=== PATIENT | male | born 1960 | race Caucasian/White ===

== ENCOUNTER 2025-04-10 08:21 | Emergency (ER) | payer OTHER ==
[~2025-04-10] VITALS: Ht 180.3 cm; Wt 108.9 kg
[2025-04-10] MEDS ORDERED: LORA10TA7 PO (09:22)
[2025-04-10] MEDS ORDERED: CEPH500B PO (09:22)
--- NOTE | 2025-04-10 09:22 | ERN ---
General Chief Complaint: Insect Bite Stated Complaint: BUG BITE LT HAND Time Seen by MD: 08:27 Source: patient History of Present Illness Initial Comments Patient is a 65-year-old male coming in complaining of left hand rash. Patient states that the lesion began three days ago. He came in today due to the discomfort those he was presenting with a it does not know what caused the lesion. Allergies: Coded Allergies: No Known Drug Allergies (Unverified Allergy, Unknown, 04/10/25) Past Medical History Past Medical History: Hypertension Past Surgical History: Cholecystectomy Surgical History Other: RT FOOT, BACK, JANESSA INGUINAL HERNIA, RT SHOULER ROS Dictation CONSTITUTIONAL: No chills, no fever, no weakness, no diaphoresis, no malaise. HEAD/FACE: No signs of trauma. EENT: No eye pain, no blurred vision, no tearing, no double vision, no ear pain, no ear discharge, no nose pain, no nasal congestion, no throat pain, no throat swelling, no mouth pain. RESPIRATORY: No cough, no orthopnea, no SOB, no stridor, no wheezing. CARDIOVASCULAR: No chest pain, no edema, no palpitations, no syncope. GASTROINTESTINAL/ABDOMINAL: No abdominal pain, no constipation, no diarrhea, no nausea, no vomiting. GENITOURINARY: No abnormal discharge, no dysuria, no frequent urination, no hematuria. No complaints of pain in the genitals. MUSCULOSKELETAL: No back pain, no gout, no joint pain, no joint swelling, no muscle pain, no muscle stiffness, no neck pain. INTEGUMENTARY: No change in color, no change in hair/nails, no dryness, no lesion, no lumps, rash. NEUROLOGICAL/PSYCH: No anxiety, not depressed, no emotional problem, no headache, no numbness, no pre-existing deficit, no history of seizures, no tremors, no weakness. HEMATOLOGIC/LYMPHATIC: Not anemic, no history of blood clots, no apparent bleeding, no bruising, glands not swollen. All Systems Negative, Except as Noted. Physical Exam Physical Exam Dictation VITAL SIGNS: Reviewed. GENERAL APPEARANCE: Alert, oriented x3, no acute distress, obese. HEAD AND FACE: Non-traumatic. EYES: PERRL, pink conjunctivas, eyelid no trauma, anterior chamber clear. EARS: Pinnas intact and no signs of trauma or erythema. Ear canals clear and no discharge. TMs no erythema. NOSE: No discharge, no bleeding. OROPHARYNX: Mouth normal, teeth no caries, tongue pink. Pharynx clear, no erythema. Tonsils no exudates, no abscesses noted. Mucous membrane moist. NECK: Supple, non-tender, no thyromegaly, no masses, no JVD, no bruits. BREAST: Deferred. CHEST: No tenderness, no crepitus, no paradoxical movement, no retractions. LUNGS: Clear, well-ventilated, symmetric, no rales, no wheezing, no rhonchi, no stridor, good breath sounds bilaterally. HEART: Regular rate, regular rhythm, no murmur, no gallops. VASCULAR: No peripheral edema. ABDOMEN: Soft, positive bowel sounds, nondistended, no guarding, nontender, no rebound, no masses no hepatomegaly, no splenomegaly, no Hernandez's sign, no hernias. RECTAL: Deferred. GENITAL: Deferred. NEUROLOGICAL: Normal speech, gross motor function intact, gross sensory function intact. MUSCULOSKELETAL: Neck nontender, full range of motion, back nontender, full range of motion. EXTREMITIES: Nontender, full range of motion. SKIN: Color pink, dry, no turgor, erythematous rash on the dorsal side of his wrist, no lacerations, no abrasions, no contusions. LYMPHATICS: Deferred. Results Laboratory and Microbiology Labs Reviewed?: Yes MDM MDM: Differential diagnosis: Rash, insect bite, cellulitis, Rationale: Tests considered and ordered secondary to shared decision making include: Previous outside records reviewed: Old ER visits. Risk of complication and/or morbidity or mortality of patient management: None Medications-Per medication reconciliation Need for hospitalization: Patient does not meet criteria for hospitalization. Patient is a 65-year-old gentleman coming in complaining of left hand possible insect bite. On physical exam there is and erythematous rash on the dorsum aspect of his hand. Patient received antibiotics IM as well as tetanus and one dose of steroids. Patient will be discharged in stable condition with a diagnosis of left hand cellulitis. ED Course Orders Procedure Category Date Status Time Ceftriaxone 1g Vial PHA 04/10/25 Complete (Rocephine 1g Inj) 09:00 Dexamethasone 4mg/Ml PHA 04/10/25 Complete 1ml Vial (Dexametha 09:00 Tetanus,Diphtheria PHA 04/10/25 Complete Tox [Adult] (Diphther 09:00 Current Medications Medications (Trade) Dose Ordered Sig/Jung Route PRN Reason Start Time Stop Time Status Last Admin Dose Admin Ceftriaxone Sodium (ROCEphine 1G INJ) 1 gm ONCE ONCE IM 04/10/25 09:00 04/10/25 09:01 DC Dexamethasone Sodium Phosphate (dexaMETHasone 4MG/ML 1ML VIAL) 4 mg ONCE ONCE IM 04/10/25 09:00 04/10/25 09:01 DC Tetanus/ Diphtheria Toxoids Adsorbed (DiphthERIA-teTANUS TOXOID [ADULT]/ DECAVAC) 0.5 ml ONCE ONCE IM 04/10/25 09:00 04/10/25 09:04 DC Vital Signs Date Time Temp Pulse Resp B/P (MAP) Pulse Ox O2 Delivery O2 Flow Rate FiO2 04/10/25 08:25 97.9 66 16 143/71 99 Room Air DX & DISP Disposition: Discharge Departure Impression: Primary Impression: Cellulitis of left hand Additional Impression: Insect bite Condition: Stable Scripts Loratadine (Loratadine) 10 Mg Tablet 1 TAB PO DAILY for allergy symptoms for 30 Days, #30 TAB 0 Refills Prov: NICOLE LEDESMA MD 04/10/25 Cephalexin Monohydrate (Keflex) 500 Mg Cap 1 CAP PO TID for 10 Days, #30 CAP 0 Refills Prov: NICOLE LEDESMA MD 04/10/25 Additional Instructions: FOLLOW-UP WITH PRIMARY CARE PROVIDER IN 1 TO 2 DAYS. TAKE MEDICATIONS DIRECTED HERE IN THE EMERGENCY ROOM. OKAY TO CONTINUE HOME MEDICATIONS UNLESS OTHERWISE DISCUSSED DURING YOUR VISIT IN THE EMERGENCY ROOM TODAY. RETURN TO YOUR NEAREST EMERGENCY ROOM IF SYMPTOMS WORSEN OR IF THERE IS NO IMPROVEMENT. CALL 911 IF YOU NEED IMMEDIATE ASSISTANCE. TAKE TYLENOL [id number] NEEDED AND IF NO CONTRAINDICATIONS ARE PRESENT. INCREASE ORAL HYDRATION. A WOUND CULTURE OR URINE CULTURE WAS ORDERED HERE IN THE EMERGENCY ROOM DEPARTMENT PLEASE FOLLOW-UP WITH PRIMARY CARE PROVIDER AND ADVISE THEM TO GET REPORTS FROM OUR FACILITY. IF YOU HAD ANY SHARON WRAP/SPLINTS THAT WERE APPLIED HERE, PLEASE DO NOT REMOVE THEM UNTIL YOU SEE YOUR PRIMARY CARE OR SPECIALTY. Referrals: Referrals: SELF,REFERRAL (PCP) BAR JARA MD Time of Disposition: 09:21 NICOLE LEDESMA MD Apr 10, 2025 09:22
[2025-04-10 09:45] VITALS: BP 144/70; PULSE 69; RESP 14; TEMP 97.9; O2SAT 99
== END 2025-04-10 09:52 | disposition home or self-care (01) ==
LOC: EDH 08:21
DX: S60.562A Insect bite (nonvenomous) of left hand, initial encounter (principal); L03.114 Cellulitis of left upper limb; M79.642 Pain in left hand; I10 Essential (primary) hypertension; Z90.49 Acquired absence of other specified parts of digestive tract; W57.XXXA Bitten or stung by nonvenomous insect and other nonvenomous arthropods, initial encounter
CPT/HCPCS: 99284; 36415; 90714; 96372 ×2; 90471; J1100; J0696

== ENCOUNTER 2025-04-13 11:16 | Emergency (ER) | payer OTHER ==
[~2025-04-13] VITALS: Ht 180.3 cm; Wt 108.0 kg
[~2025-04-13 11:16] MED LIST: CEPH500B PO; LORA10TA7 PO
--- NOTE | 2025-04-13 11:24 | ERN ---
ED Note History of Present Illness Stated Complaint: BUG BITE Chief Complaint: Insect Bite Time Seen by MD: 11:16 Dictation: PATIENT IS A 65-YEAR-OLD MALE HERE WITH COMPLAINTS OF A LEFT HAND SPIDER BITE/INSPECT BITE/CELLULITIS THAT HE HAS HAD FOR SEVERAL DAYS. HE DENIES ANY FEVER CHILLS NAUSEA VOMITING. HE WAS HERE ON April OF THIS YEAR AND TREATED WITH CEPHALEXIN AND A TETANUS UPDATE. STATES HE SAW HIS PRIMARY CARE DOCTOR TODAY WHO ADVISED HIM THAT THE CELLULITIS AND INFECTION WAS GETTING WORSE AND ADVISED HIM TO COME TO THE EMERGENCY ROOM FOR FURTHER EVALUATION AND TREATMENT. ADDITIONALLY HE WAS REFERRED TO DR. LOVE IF HE IS ADMITTED TO THE HOSPITAL FOR SEPSIS. Allergies: Coded Allergies: No Known Drug Allergies (Unverified Allergy, Unknown, 04/10/25) Home Meds Active Scripts Loratadine (Loratadine) 10 Mg Tablet, 1 TAB PO DAILY for allergy symptoms for 30 Days, #30 TAB 0 Refills Prov:NICOLE LEDESMA MD 04/10/25 Cephalexin Monohydrate (Keflex) 500 Mg Cap, 1 CAP PO TID for 10 Days, #30 CAP 0 Refills Prov:NICOLE LEDESMA MD 04/10/25 Past Medical History Past Medical History: High Cholesterol, Hypertension Surgical History: Cholecystectomy Surgical History Other: BACJ, HERNIA SX, SHOULDER SX RN Note Reviewed/Agreed w/PFSH: Yes Review of System Dictation CONSTITUTIONAL: NEGATIVE EXCEPT FOR HPI HEAD/FACE: NEGATIVE EXCEPT FOR HPI EENT: NEGATIVE EXCEPT FOR HPI RESPIRATORY: NEGATIVE EXCEPT FOR HPI GASTROINTESTINAL/ABDOMINAL: NEGATIVE EXCEPT FOR HPI GENITOURINARY: NEGATIVE EXCEPT FOR HPI MUSCULOSKELETAL: NEGATIVE EXCEPT FOR HPI INTEGUMENTARY: NEGATIVE EXCEPT FOR HPI ERYTHEMATOUS LESIONS WITH SWELLING TO DORSUM LEFT HAND NEUROLOGICAL/PSYCH: NEGATIVE EXCEPT FOR HPI HEMATOLOGIC/LYMPHATIC: NEGATIVE EXCEPT FOR HPI ALL SYSTEMS NEGATIVE, EXCEPT NOTED ABOVE. 13 POINT REVIEW OF SYSTEMS ASSESSED AND ALL NEGATIVE EXCEPT FOR ABOVE. Initial Vital Sign VS Vital Signs Date Time Temp Pulse Resp B/P (MAP) Pulse Ox O2 Delivery O2 Flow Rate FiO2 04/13/25 11:16 98.6 66 18 131/67 95 Room Air 0 04/13/25 11:51 21 Physical Exam Dictation VITAL SIGNS REVIEWED GENERAL APPEARANCE: ALERT, ORIENTED X 3, NO ACUTE DISTRESS, WELL DEVELOPED, NOUR ISHED. HEAD AND FACE: NON-TRAUMATIC. EYES: PERRL, PINK CONJUNCTIVAS, EYELID NO TRAUMA, ANTERIOR CHAMBER WITH ARCUS SENILIS. EARS: PINNAS INTACT AND NO SIGNS OF TRAUMA OR ERYTHEMA EAR CANALS CLEAR AND NO DISCHARGE TM NO ERYTHEMA NOSE: NO DISCHARGE, NO BLEEDING. OROPHARYNX: MOUTH NORMAL, TONGUE PINK, PHARYNX CLEAR,NO ERYTHEMA, TONSILS NO EXUDATES, NO ABSCESSES NOTED, MUCOUS MEM BRANE MOIST NECK: SUPPLE, NON-TENDER, NO THYROMEGALY, NO MASSES, NO JVD, NO BRUITS BREAST:DEFERRED CHEST:NO TENDERNESS, NO CREPITUS, NO PARADOXICAL MOVEMENT, NO RETRACTIONS LUNGS:CLEAR, WELL-VENTILATED, SYMMETRIC, NO RALES, NO WHEEZING, NO RHONCHI, NO STRIDOR, GOOD BREATH SOUNDS BILATERALLY HEART: REGULAR RATE, REGULAR RHYTHM, NO MURMUR, NO GALLOPS VASCULAR: NO PERIPHERAL EDEMA, ABDOMEN: SOFT, POSITIVE BOWEL SOUNDS, NONDISTENDED, NO GUARDING, NONTENDER, NO REBOUND, NO MASSES NO HEPATOMEGALY, NO SPLENOMEGALY, NO GAN'S SIGN, NO HERNIAS. RECTAL: DEFERRED GENITAL: DEFERRED NEUROLOGICAL: NORMAL SPEECH, MOTOR FUNCTION INTACT, SENSORY FUNCTION INTACT MUSCULOSKELETAL: NECK NONTENDER, FULL RANGE OF MOTION, BACK NONTENDER, FULL RANGE OF MOTION, EXTREMITIES: NONTENDER, FULL RANGE OF MOTION SKIN: COLOR PINK, SWOLLEN TENDER ERYTHEMATOUS LESION TO DORSUM LEFT HAND APPROXI MATE 3 X 4 CM. INDURATED. LYMPHATIC: DEFERRED Results (Laboratory/Radiology) Laboratory/Radiology Laboratory Tests Test 04/13/25 11:48 White Blood Count 12.3 K/uL (4.8-10.8) H Red Blood Count 4.78 MIL/uL (4.50-6.20) Hemoglobin 16.0 g/dL (14.0-18.0) Hematocrit 47.8 % (42-54) Mean Corpuscular Volume 100.0 fL (79-99) H Mean Corpuscular Hemoglobin 33.5 pg (27.0-33.0) H Mean Corpuscular Hemoglobin Concent 33.5 g/dL (32.0-36.0) Red Cell Distribution Width 12.0 % (11.0-15.5) Platelet Count 268 K/uL (130-400) Mean Platelet Volume 10.8 fL (7.5-10.5) H Immature Granulocyte % (Auto) 0.6 % (0-1) Neutrophils (%) (Auto) 56.8 % (40.0-77.0) Lymphocytes (%) (Auto) 29.9 % (21.0-51.0) Monocytes (%) (Auto) 9.4 % (3.0-13.0) Eosinophils (%) (Auto) 2.6 % (0.0-8.0) Basophils (%) (Auto) 0.7 % (0.0-5.0) Neutrophils # (Auto) 7.0 K/uL (1.8-7.7) Lymphocytes # (Auto) 3.7 K/uL (1.0-4.8) Monocytes # (Auto) 1.2 K/uL (0.1-1.0) H Eosinophils # (Auto) 0.32 K/uL (0.00-0.70) Basophils # (Auto) 0.09 K/uL (0.00-0.20) Absolute Immature Granulocyte (auto 0.07 K/uL (0-1) Nucleated Red Blood Cells 0.0 % (0.0-0.19) Sodium Level 140 mmol/L (136-145) Potassium Level 3.9 mmol/L (3.5-5.1) Chloride Level 104 mmol/L (101-111) Carbon Dioxide Level 30 mmol/L (21-32) Blood Urea Nitrogen 17 mg/dL (7-18) Creatinine 0.9 mg/dL (0.5-1.3) Glomerular Filtration Rate Calc 95 mL/min (>90) Random Glucose 103 mg/dL (70-105) Lactic Acid Level 1.0 mmol/L (0.8-2.5) Total Calcium 8.9 mg/dL (8.5-10.1) LEFT HAND ULTRASOUND DEMONSTRATES COMPLEX STRUCTURE 4.1 X 1.5 X 3.1 CM Labs Reviewed?: Yes ED Course ED Course Orders Procedure Category Date Status Time Blood Cult DEBBIE 04/13/25 In Process 11:20 Lactic Acid LAB 04/13/25 Complete 11:20 Cbc With Differential LAB 04/13/25 Complete 11:20 Basic Metabolic Panel LAB 04/13/25 Complete 11:20 Clindamycin Ivpb PHA 04/13/25 Complete 600mg/50ml (Cleocin 11:20 Ketorolac PHA 04/13/25 Complete Tromethamine 15mg/Ml 11:30 Us Soft Tissue Upper US 7/9/25 Resulted Extremity 12:13 Lidocaine Hcl 1% 20ml PHA 04/13/25 In Process Vial (Lidocaine Hc 14:30 Aerobic Culture DEBBIE 04/13/25 Logged 14:03 Current Medications Medications (Trade) Dose Ordered Sig/Jung Route PRN Reason Start Time Stop Time Status Last Admin Dose Admin Clindamycin HCl/ Dextrose 50 ml @ 100 mls/hr ONCE STAT IV 04/13/25 11:20 04/13/25 11:49 DC 04/13/25 12:01 Ketorolac Tromethamine (toRADol) 15 mg ONCE ONCE IV 04/13/25 11:30 04/13/25 11:31 DC 04/13/25 12:01 Lidocaine HCl (Lidocaine HCl 1% 20ml Vial) 10 ml ONCE ONCE INJ 04/13/25 14:30 04/13/25 14:31 04/13/25 14:09 Vital Signs Date Time Temp Pulse Resp B/P (MAP) Pulse Ox O2 Delivery O2 Flow Rate FiO2 04/13/25 11:51 98.6 66 18 131/67 95 Room Air* 0 21 04/13/25 11:16 98.6 66 18 131/67 95 Room Air 0 DISCUSSED CLINICAL FINDINGS WITH PATIENT TO INCLUDE ULTRASOUND REPORT HE AGREES TO BE ADMITTED TO THE HOSPITAL FOR OUTPATIENT TREATMENT FAILURE AND HOSPITALIZATION FOR REFRACTORY CELLULITIS LEFT HAND. HE ALSO TOLD ME AT THE SAME TIME THAT HE HAD STARTED DOXYCYCLINE FROM HIS DOCTOR YESTERDAY IN HIS HAD T HREE DOSES OF DOXEPIN1 1405/DR. LOVE HERE AND EXAMINED PATIENT AND THE LABS. HE SAID THERE WAS NO MED MISERABLE CRITERIA RECOMMENDED I AND D OF ABSCESS WITH CULTURE TO BE SENT FOR TESTING. IN ADDITION HE RECOMMENDED SEND PATIENT HOME ON KEFLEX AND DOXYCYCLINE FROM HIS DOCTOR VISIT YESTERDAY FOLLOW UP WITH HIS DOCTOR IN THE NEXT 1-2 DAYS OR RETURN TO THE EMERGENCY ROOM IF HE GETS WORSE. PATIENT UNDERSTOOD Medical Decision Making MDM MDM: DIFFERENTIAL DIAGNOSIS: CELLULITIS/ABSCESS/NONSPECIFIC DERMATITIS/SEPSIS/ELECTROLYTE IMBALANCE/DEHYDRATION RATIONALE: TESTS CONSIDERED AND ORDERED SECONDARY TO SHARED DECISION MAKING INCLUDE: LABS, AND RADIOLOGY PREVIOUS OUTSIDE RECORDS REVIEWED: OLD ER VISITS. RISK OF COMPLICATION AND/OR MORBIDITY OR MORTALITY OF PATIENT MANAGEMENT: NONE MEDICATIONS-PER MEDICATION RECONCILIATION NEED FOR HOSPITALIZATION: PATIENT DOES MEET CRITERIA FOR HOSPITALIZATION. PATIENT WILL BE ADMITTED FOR OUTPATIENT TREATMENT FAILURE AND ABSCESS TO LEFT HAND NEED FOR EMERGENCY MAJOR/MINOR SURGERY: POSSIBLE SURGICAL DEBRIDEMENT THERE ARE NO SOCIAL CONCERNS WITH THIS PATIENT. PRESCRIPTION DRUG MANAGEMENT PRESCRIPTIONS WILL INCLUDE SYMPTOMATIC CARE PATIENT'S PRIOR EXTERNAL MEDICAL RECORDS FROM OTHER ER VISITS WERE REVIEWED BY ME INDICATED. PRIOR TESTING AND RESULTS FROM PREVIOUS VISITS WERE REVIEWED. PRIOR TESTS WERE TAKEN INTO ACCOUNT WITH MEDICAL DECISION MAKING AND RESOURCE UTILIZATION, INDEPENDENT HISTORIAN/HISTORIANS WERE USED TO OBTAIN COMPLETE MEDICAL HISTORY. I INDEPENDENTLY INTERPRETED THE TEST THAT WERE PERFORMED, RESULTS WERE REVIEWED BY ME AND CONSIDERED FINDINGS ON RADIOLOGY IF ORDERED. MEDICAL MANAGEMENT AND EXAMINATION INTERPRETATION DISCUSSIONS WERE HAD BY ME WITH OTHER QUALIFIED HEALTHCARE PROFESSIONALS INDICATED FOR THE PATIENT'S CARE. Procedure Procedure Dictation: 1405/PROCEDURE EXPLAINED TO PATIENT HE AGREED TO PROCEED. LEFT HAND INFECTED INSECT BITE/ABSCESS APPROXIMATE 3 X 4 CM CLEANSED WITH WOUND CLEANSER THOROUGHLY 4 ML 1% LIDOCAINE PLAIN FOR LOCAL ANESTHETIC 3 CM INCISION MADE WITH 11. SCALPEL LOCULATIONS WERE EXPLORED APPROXIMATE THREE MEALS A PURULENT DRAINAGE RETURNED AND CULTURES WERE SENT. PATIENT TOLERATED WELL NO PACKING DX & DISP Disposition: Discharge Decision to Admit Time: 13:45 Departure Impression: Primary Impression: Cellulitis of left hand Additional Impressions: Insect bite, Failure of outpatient treatment Condition: Stable Referrals: SELF,REFERRAL (PCP) Time of Disposition: 13:45 and I agree with, Diagnosis and Plan LUBNA SALEEM NP Apr 13, 2025 11:24
[2025-04-13 11:58] LABS: IMMATURE GRANULOCYTE ABSOLUTE 0.07 K/uL (0-1); NUCLEATED RED BLOOD CELLS 0.0 % (0.0-0.19); PLATELET COUNT (AUTO) 268 K/uL (130-400); RED BLOOD CELL COUNT(AUTO) 4.78 MIL/uL (4.50-6.20); RED CELL DISTRIBUTION WIDTH 12.0 % (11.0-15.5); WHITE BLOOD COUNT (AUTO) 12.3 K/uL (4.8-10.8)
[2025-04-13] MEDS: CLINDAMYCIN IVPB 600MG/50ML 50 ML IV STA (12:01)
[2025-04-13 12:08] LABS: CREATININE 0.9 mg/dL (0.5-1.3); GLOMERULAR FILTR. RATE CALC 95.0 mL/min (>90); GLUCOSE,RANDOM 103.0 mg/dL (70-105); SODIUM SERUM 140.0 mmol/L (136-145); UREA NITROGEN, BLOOD 17.0 mg/dL (7-18)
--- NOTE | 2025-04-13 14:00 | HMCIMG ---
EXAM: US left Upper Extremity Nonvascular Soft Tissue Ultrasound CLINICAL HISTORY: LEFT HAND LESION WITH ERYTHEMATOUS SWELLING TENDERNESS TECHNIQUE: Real-time ultrasound scan of the left upper extremity with image documentation. COMPARISON: None provided. FINDINGS: SOFT TISSUES: A complex echotextured structure measuring 4.1 x 1.5 x 3.1 cm is seen with internal vascularity within, suggestive of spider bite (as per history). IMPRESSION: 1. Complex echotextured structure in the left hand measuring 4.1 x 1.5 x 3.1 cm with internal vascularity, compatible with history of spider bite. This is presumed to reflect a phlegmon. No defined drainable abscess appreciated. If clinically warranted consider MRI of the hand for further evaluation. /[place]
[2025-04-13] MEDS: LIDOCAINE HCL 1% 20 ML VIAL INJ ONE (14:09)
--- NOTE | 2025-04-13 14:09 | NUR ---
PT WOUND DEBRIDED, PT TOLERATED WELL
[2025-04-13 14:24] VITALS: BP 124/62; PULSE 62; RESP 18; TEMP 98.6; O2SAT 95
--- NOTE | 2025-04-13 14:38 | NUR ---
WOUND DRESSED, PT TOLERATED WELL
--- NOTE | 2025-04-16 09:05 | NUR ---
NOTIFIED PT THAT HE IS POSITIVE FOR MRSA TO WOUND ON HAND, STATES HE IS NOW APPLYING MUPIROCIN THAT WAS RECENTLY PRESCRIBED. PER DR. LEDESMA, CONTINUE TO USE MUPIROCIN PRESCRIBED AND FOLLOW UP WITH PRIMARY MD. PT VERBALIZED UNDERSTANDING.
== END 2025-04-13 14:39 | disposition home or self-care (01) ==
LOC: EDH 11:16
DX: S60.562A Insect bite (nonvenomous) of left hand, initial encounter (principal); L03.114 Cellulitis of left upper limb; E78.00 Pure hypercholesterolemia, unspecified; I10 Essential (primary) hypertension; Z90.49 Acquired absence of other specified parts of digestive tract; Z79.899 Other long term (current) drug therapy; W57.XXXA Bitten or stung by nonvenomous insect and other nonvenomous arthropods, initial encounter
CPT/HCPCS: 99285; 96374; 10060; 96375; 80048; 85025; 87040 ×2; 87086; 87186; 83605; 36415; 76882; 87070; J1885; J3490